=== PATIENT | female | born 1970 | race Caucasian/White ===

== ENCOUNTER → 2024-02-23 | Outpatient (CLI) | payer BC, SELFPAY ==
[2024-02-23 09:36] LABS: Alanine Aminotransferase 22 U/L (10-49); Albumin, Serum 4.2 gm/dL (3.5-5.0); Albumin/Globulin Ratio 1.9 (1.2-2.2); Alkaline Phosphatase 117 U/L (46-116); Anion Gap 4 (7-16); Aspartate Amino Transferase 29 U/L (0-34); BUN/Creatinine Ratio 7 Ratio (12-20); Bilirubin,Total 0.3 mg/dL (0.3-1.2); Blood Urea Nitrogen 6 mg/dL (9-23); Calcium 9.2 mg/dL (8.3-10.6); Calcium (Corrected) 9.2 mg/dL (8.5-10.1); Chloride 100 mMol/L (98-107); Creatinine (Component) 0.9 mg/dL (0.6-1.3); Globulin 2.2 gm/dL (2.3-3.5); Glucose 96 mg/dL (74-106); LDH (Lactate Dehydrogenase) 204 U/L (120-246); Osmolality,Calculated 269 (275-295); Sodium 136 mMol/L (136-145); Total Protein 6.4 gm/dL (5.7-8.2); eGFR > 60 See Note
== END | disposition home or self-care (01) ==
LOC: COPL 08:21
PROVIDERS: PCP Specialist; Referring Provider Specialist; Visit Provider Specialist
DX: A41.9 Sepsis, unspecified organism (principal)
CPT/HCPCS: 36415; 80053; 83615

== ENCOUNTER → 2024-03-24 | Outpatient (CLI) | payer BC, SELFPAY ==
[2024-03-24 11:05] LABS: Collection Type, Urine Clean Catch
[2024-03-24 12:31] LABS: Bacteria,Urine Rare; Bilirubin,Urine Negative (Negative); Blood,Urine Negative (Negative); Clarity,Urine Clear (Clear/Hazy); Color,Urine Yellow (Lt Yel-Yel); Glucose, Urine Negative (Negative); Ketones,Urine 1+ (Negative); Leukocyte Esterase,Urine Negative (Negative); Nitrite,Urine Negative (Negative); PH,Urine 5.5 (5.0-7.0); Protein,Urine Trace (Neg - Trace); RBC,Urine 1 /hpf (0-3); Specific Gravity,Urine 1.018 (1.001-1.035); Squamous Epithelial Cell,Urine 3 /hpf (0-5); Urobilinogen,Urine Negative mg/dL (0.0-1.0); WBC,Urine 2 /hpf (0-5)
== END | disposition home or self-care (01) ==
LOC: SLDO 10:59
PROVIDERS: Referring Provider Specialist; Visit Provider Specialist
DX: R30.0 Dysuria (principal)
CPT/HCPCS: 81001; 87086

== ENCOUNTER → 2024-03-24 | Outpatient (CLI) | payer BC, SELFPAY ==
--- NOTE | 2024-03-24 15:42 | XR_ITS ---
Examination: Retroperitoneal ultrasound, complete Technique: Multiple high resolution grayscale images of the retroperitoneum obtained, including kidneys and bladder. Exam date and time:March 24, 2024 1558 hours INDICATIONS: Diagnosis pyelonephritis over the last 2 months, urinary tract infections since January with sepsis complication FINDINGS: Right kidney 10.1 x 4.7 x 5.8 cm cortex 1.7 cm Left kidney 10.3 x 5.2 x 4.8 cm cortex 1.7 cm No hydronephrosis or renal calculi No solid renal mass lesion No bladder mass or bladder calculi Bladder prevoid volume 228 cc postvoid volume 54 cc IMPRESSION: No hydronephrosis or renal calculi No solid renal mass lesion If the patient exhibits findings of acute pyelonephritis, recommend CT scan abdomen kidneys post intravenous contrast follow-up
== END | disposition home or self-care (01) ==
PROVIDERS: PCP Specialist; Referring Provider Specialist; Visit Provider Specialist
DX: N11.1 Chronic obstructive pyelonephritis (principal)
CPT/HCPCS: 76770

== ENCOUNTER → 2024-03-25 | Outpatient (CLI) | payer BC, SELFPAY ==
[2024-03-25 12:36] LABS: Collection Type, Urine Clean Catch
[2024-03-25 13:17] LABS: Bilirubin,Urine Negative (Negative); Blood,Urine Negative (Negative); Clarity,Urine Clear (Clear/Hazy); Color,Urine Lt-Yellow (Lt Yel-Yel); Glucose, Urine Negative (Negative); Ketones,Urine Negative (Negative); Leukocyte Esterase,Urine Negative (Negative); Nitrite,Urine Negative (Negative); PH,Urine 6.5 (5.0-7.0); Protein,Urine Negative (Neg - Trace); RBC,Urine 3 /hpf (0-3); Specific Gravity,Urine 1.007 (1.001-1.035); Squamous Epithelial Cell,Urine 1 /hpf (0-5); Urobilinogen,Urine Negative mg/dL (0.0-1.0); WBC,Urine 1 /hpf (0-5)
== END | disposition home or self-care (01) ==
LOC: SLDO 11:57
PROVIDERS: PCP Specialist; Referring Provider Specialist; Visit Provider Specialist
DX: R30.0 Dysuria (principal)
CPT/HCPCS: 81001; 87086

== ENCOUNTER → 2024-03-25 | Outpatient (CLI) | payer BC, SELFPAY ==
--- NOTE | 2024-03-25 15:03 | XR_ITS ---
Examination: Abdomen sonogram, complete Date and time of exam: March 25, 2024 1411 hours INDICATIONS: Right upper abdominal pain beginning 2 weeks ago. Technique: Multiple real-time grayscale transabdominal sonographic images of the abdomen have been obtained. Findings: Normal gallbladder Common bile duct enlarged 0.8 cm no stones Pancreatic head 1.8 cm Aorta not enlarged Liver 17.5 cm fatty infiltration no focal liver lesions Normal hepatopedal portal venous flow Patent IVC Right kidney 10.8 x 4.8 x 5.6 cm renal cortex 1.8 cm Left kidney 9.7 x 5.2 x 4.7 cm renal cortex 1.6 cm No hydronephrosis Spleen 8.8 cm IMPRESSION: Normal gallbladder Enlarged common bile duct, clinical correlation advised, if biliary colic is a clinical consideration suggest MRCP follow-up
--- NOTE | 2024-03-25 15:03 | XR_ITS ---
Examination: Pelvic ultrasound, transabdominal, complete Technique: Transabdominal ultrasound of the pelvis performed using grayscale imaging Date and time of exam: March 25, 2024 1521 hours INDICATIONS: Pelvic pain beginning 2 weeks ago. FINDINGS: Absent uterus Ovaries obscured by bowel gas No free fluid in the pelvis IMPRESSION: Limited study No free fluid in the pelvis No pelvic mass
[2024-03-25 15:54] LABS: Lactate (Lactic Acid) 1.4 mMol/L (0.4-2.0)
[2024-03-25 16:08] LABS: Basophils % (Auto) 0 % (0-2.5); Eosinophils % (Auto) 0 % (0-10); Hemoglobin 14.9 g/dL (12.0-16.0); Immature Granulocytes % (Auto) 0 % (0-0); Immature Granulocytes Auto 0.01 Thou/mm3 (0.00-0.00); Lymphocytes % (Auto) 31 % (10-50); Mean Corpuscular HGB Conc 33.9 g/dl (31.0-37.0); Mean Corpuscular Hemoglobin 30.3 pg (25.0-35.0); Mean Corpuscular Volume 89 fL (80-100); Monocytes # (Auto) 0.7 Thou/mm3 (0.0-0.8); Monocytes % (Auto) 8 % (0-12); Neutrophils # (Auto) 5.9 Thou/mm3 (1.8-7.7); Neutrophils % (Auto) 61 % (37-80); Nucleated Red Blood Cell % 0 /100 WBC (0); Platelet Count 288 Thou/mm3 (140-440); Red Blood Count 4.92 Miln/mm3 (4.00-5.20); White Blood Count 9.8 Thou/mm3 (3.6-11.0)
[2024-03-25 16:32] LABS: B-Type Natriuretic Peptide 295 pg/mL (0-100)
[2024-03-25 16:45] LABS: Alanine Aminotransferase 52 U/L (10-49); Albumin, Serum 4.5 gm/dL (3.5-5.0); Alkaline Phosphatase 76 U/L (46-116); Anion Gap 8 (7-16); Aspartate Amino Transferase 60 U/L (0-34); BUN/Creatinine Ratio 15 Ratio (12-20); Bilirubin,Total 0.6 mg/dL (0.3-1.2); Blood Urea Nitrogen 12 mg/dL (9-23); C-Reactive Protein < 0.4 mg/dL (0.0-0.9); Calcium 9.5 mg/dL (8.3-10.6); Calcium (Corrected) 9.5 mg/dL (8.5-10.1); Carbon Dioxide 30.1 mMol/L (20.0-31.0); Chloride 96 mMol/L (98-107); Creatinine (Component) 0.8 mg/dL (0.6-1.3); Globulin 2.3 gm/dL (2.3-3.5); Glucose 89 mg/dL (74-106); LDH (Lactate Dehydrogenase) 296 U/L (120-246); Osmolality,Calculated 266 (275-295); Potassium 3.5 mMol/L (3.4-5.1); Sodium 134 mMol/L (136-145); Total Protein 6.8 gm/dL (5.7-8.2); Troponin I < 0.020 ng/mL (0.0-0.045); eGFR > 60 See Note
[2024-03-25 17:53] LABS: Sed Rate (ESR) 15 mm/hr (0-30)
== END | disposition home or self-care (01) ==
LOC: CDIM 14:52 → COPL 15:16
PROVIDERS: PCP Specialist; Referring Provider Specialist; Visit Provider Radiology Diagnostic Radiology
DX: K83.8 Other specified diseases of biliary tract (principal); R10.2 Pelvic and perineal pain; R07.9 Chest pain, unspecified
CPT/HCPCS: 36415; 76700; 76856; 80053; 83605; 83615; 83880; 84484; 85025; 85652; 86140

== ENCOUNTER → 2024-04-08 | Outpatient (CLI) | payer BC, SELFPAY ==
--- NOTE | 2024-04-08 09:45 | XR_ITS ---
MRI abdomen, without contrast. MRCP Date and time of exam: April 08, 2024 1011 hours Comparison November 24, 2017 INDICATIONS: 2 episodes of intense right-sided abdominal pain and vomiting January and early March, ultrasound abdomen March 25, 2024 enlarged common bile duct 0.8 cm Technique: Multiple axial and coronal images of the abdomen have been obtained with the Siemens 1.5T MRI scanner. Images obtained included T1 weighted transverse images, T2-weighted transverse images, T2-weighted transverse images fat-suppressed, T2 weighted haste fat suppressed transverse images, T1 weighted images, in and out of phase images, T2-weighted coronal images, breath hold, T2 weighted haze coronal images as well as T2 weighted coronal thick slab images, MRCP. Findings: Hepatomegaly 20 cm No intrahepatic biliary tract dilatation No gallstones Gallbladder wall is not thickened Common bile duct 4 mm no common bile duct stones No pancreatic mass or peripancreatic edema Pancreatic duct is not dilated Spleen is normal in size No hydronephrosis Aorta normal size No ascites Prominent lumbar dextroscoliosis IMPRESSION: Hepatomegaly 20 cm Normal gallbladder Normal common hepatic common bile duct, no extrahepatic biliary stones
== END | disposition home or self-care (01) ==
LOC: SMRI 09:13
PROVIDERS: PCP Specialist; Referring Provider Specialist; Visit Provider Specialist
DX: R16.0 Hepatomegaly, not elsewhere classified (principal)
CPT/HCPCS: S8037; 74181

== ENCOUNTER → 2024-04-28 | Outpatient (CLI) | payer BC, SELFPAY ==
[2024-04-28 10:43] LABS: Basophils # (Auto) 0.1 Thou/mm3 (0.0-0.2); Basophils % (Auto) 1 % (0-2.5); Eosinophils # (Auto) 0.3 Thou/mm3 (0.0-0.5); Eosinophils % (Auto) 4 % (0-10); Hematocrit 39.8 % (36.0-46.0); Hemoglobin 12.7 g/dL (12.0-16.0); Immature Granulocytes % (Auto) 0 % (0-0); Immature Granulocytes Auto 0.03 Thou/mm3 (0.00-0.00); Lymphocytes # (Auto) 2.9 Thou/mm3 (1.0-4.8); Lymphocytes % (Auto) 40 % (10-50); Mean Corpuscular HGB Conc 31.9 g/dl (31.0-37.0); Mean Corpuscular Hemoglobin 29.7 pg (25.0-35.0); Mean Corpuscular Volume 93 fL (80-100); Monocytes # (Auto) 0.6 Thou/mm3 (0.0-0.8); Monocytes % (Auto) 8 % (0-12); Neutrophils # (Auto) 3.4 Thou/mm3 (1.8-7.7); Neutrophils % (Auto) 47 % (37-80); Nucleated Red Blood Cell % 0 /100 WBC (0); Platelet Count 296 Thou/mm3 (140-440); RDW Standard Deviation 47.7 fL (36.4-46.3); Red Blood Count 4.27 Miln/mm3 (4.00-5.20); White Blood Count 7.3 Thou/mm3 (3.6-11.0)
[2024-04-28 10:56] LABS: INR 0.9 (0.9-1.3); Partial Thromboplastin Time 28.3 Seconds (22.0-36.0); Prothrombin Time 10.4 Seconds (9.0-12.2)
[2024-04-28 11:15] LABS: Alanine Aminotransferase 20 U/L (10-49); Albumin, Serum 4.3 gm/dL (3.5-5.0); Albumin/Globulin Ratio 1.7 (1.2-2.2); Alkaline Phosphatase 104 U/L (46-116); Anion Gap 5 (7-16); Aspartate Amino Transferase 28 U/L (0-34); BUN/Creatinine Ratio 10 Ratio (12-20); Bilirubin,Total 0.2 mg/dL (0.3-1.2); Blood Urea Nitrogen 8 mg/dL (9-23); Calcium 9.7 mg/dL (8.3-10.6); Calcium (Corrected) 9.7 mg/dL (8.5-10.1); Carbon Dioxide 32.4 mMol/L (20.0-31.0); Chloride 104 mMol/L (98-107); Creatinine (Component) 0.8 mg/dL (0.6-1.3); Globulin 2.6 gm/dL (2.3-3.5); Glucose 94 mg/dL (74-106); Osmolality,Calculated 279 (275-295); Potassium 4.1 mMol/L (3.4-5.1); Sodium 141 mMol/L (136-145); Total Protein 6.9 gm/dL (5.7-8.2); eGFR > 60 See Note
== END | disposition home or self-care (01) ==
LOC: COPL 08:59
PROVIDERS: PCP Specialist; Referring Provider Physician Assistant Medical; Visit Provider Physician Assistant Medical
DX: R10.9 Unspecified abdominal pain (principal)
CPT/HCPCS: 36415; 80053; 85025; 85610; 85730

== ENCOUNTER → 2024-05-31 | Outpatient (CLI) | payer BC, SELFPAY ==
[2024-05-31 09:39] LABS: Basophils # (Auto) 0.1 Thou/mm3 (0.0-0.2); Basophils % (Auto) 1 % (0-2.5); Eosinophils # (Auto) 0.2 Thou/mm3 (0.0-0.5); Eosinophils % (Auto) 3 % (0-10); Hematocrit 40.5 % (36.0-46.0); Hemoglobin 13.2 g/dL (12.0-16.0); Immature Granulocytes % (Auto) 0 % (0-0); Immature Granulocytes Auto 0.02 Thou/mm3 (0.00-0.00); Lymphocytes # (Auto) 2.1 Thou/mm3 (1.0-4.8); Lymphocytes % (Auto) 30 % (10-50); Mean Corpuscular HGB Conc 32.6 g/dl (31.0-37.0); Mean Corpuscular Volume 92 fL (80-100); Monocytes # (Auto) 0.4 Thou/mm3 (0.0-0.8); Monocytes % (Auto) 6 % (0-12); Neutrophils # (Auto) 4.2 Thou/mm3 (1.8-7.7); Neutrophils % (Auto) 59 % (37-80); Nucleated Red Blood Cell % 0 /100 WBC (0); Platelet Count 283 Thou/mm3 (140-440); RDW Standard Deviation 46.8 fL (36.4-46.3); White Blood Count 7.1 Thou/mm3 (3.6-11.0)
[2024-05-31 09:56] LABS: Alanine Aminotransferase 73 U/L (10-49); Albumin, Serum 4.5 gm/dL (3.5-5.0); Albumin/Globulin Ratio 1.9 (1.2-2.2); Alkaline Phosphatase 111 U/L (46-116); Anion Gap 6 (7-16); Aspartate Amino Transferase 73 U/L (0-34); BUN/Creatinine Ratio 13 Ratio (12-20); Bilirubin,Total 0.3 mg/dL (0.3-1.2); Blood Urea Nitrogen 10 mg/dL (9-23); Calcium 9.9 mg/dL (8.3-10.6); Calcium (Corrected) 9.9 mg/dL (8.5-10.1); Carbon Dioxide 30.5 mMol/L (20.0-31.0); Chloride 104 mMol/L (98-107); Creatinine (Component) 0.8 mg/dL (0.6-1.3); Globulin 2.4 gm/dL (2.3-3.5); Glucose 114 mg/dL (74-106); Osmolality,Calculated 279 (275-295); Potassium 4.3 mMol/L (3.4-5.1); Sodium 140 mMol/L (136-145); Total Protein 6.9 gm/dL (5.7-8.2); eGFR > 60 See Note
== END | disposition home or self-care (01) ==
LOC: COPL 08:52
PROVIDERS: PCP Specialist; Referring Provider Specialist; Visit Provider Specialist
DX: N28.85 Pyeloureteritis cystica (principal); I20.9 Angina pectoris, unspecified
CPT/HCPCS: 36415; 80053; 85025

== ENCOUNTER → 2024-07-13 | Outpatient (CLI) | payer BC, SELFPAY ==
[2024-07-13 14:27] LABS: Collection Type, Urine Clean Catch
[2024-07-13 16:58] LABS: Bacteria,Urine 1+; Bilirubin,Urine Negative (Negative); Blood,Urine 1+ (Negative); Color,Urine Yellow (Lt Yel-Yel); Glucose, Urine Negative (Negative); Ketones,Urine Negative (Negative); Leukocyte Esterase,Urine Positive (Negative); Nitrite,Urine Negative (Negative); PH,Urine 6.5 (5.0-7.0); Protein,Urine Negative (Neg - Trace); RBC,Urine 27 /hpf (0-3); Specific Gravity,Urine 1.012 (1.001-1.035); Squamous Epithelial Cell,Urine 4 /hpf (0-5); Urobilinogen,Urine Negative mg/dL (0.0-1.0); WBC,Urine 1001 /hpf (0-5)
[2024-07-13 17:19] LABS: Clarity,Urine Hazy (Clear/Hazy)
== END | disposition home or self-care (01) ==
LOC: SLDO 13:57
PROVIDERS: PCP Specialist; Referring Provider Specialist; Visit Provider Specialist
DX: R30.9 Painful micturition, unspecified (principal)
CPT/HCPCS: 81001; 87077; 87086; 87186

== ENCOUNTER → 2024-08-04 | Outpatient (CLI) | payer BC, SELFPAY ==
[2024-08-04 17:27] LABS: Amphetamine/Methamp Scrn,U Negative (Negative); Barbiturate Screen,Urine Negative (Negative); Benzodiazepines Screen,Urine Positive (Negative); Benzoylecgonine Screen, Ur Negative (Negative); Fentanyl Screen,Urine Negative (Negative); Opiate Screen,Urine Positive (Negative); THC Screen,Urine Negative (Negative)
== END | disposition home or self-care (01) ==
LOC: SLDO 15:22
PROVIDERS: PCP Specialist; Referring Provider Specialist; Visit Provider Specialist
DX: Z79.891 Long term (current) use of opiate analgesic (principal)
CPT/HCPCS: 80307

== ENCOUNTER → 2024-08-11 | Outpatient (CLI) | payer BC, SELFPAY ==
[2024-08-11 13:20] LABS: Thyroid Stimulating Hormone 0.84 uIU/mL (0.55-4.78)
[2024-08-22 07:13] LABS: DHEA Sulfate* 14 mcg/dL (8-188); Luteinizing Hormone* 13.1 mIU/mL; Testosterone, Total, Dialysis 13 ng/dL (2-45)
[2024-08-22 07:14] LABS: Testosterone, Free,Dialysis 1.7 pg/mL (0.1-6.4)
== END | disposition home or self-care (01) ==
LOC: COPL 11:49
PROVIDERS: PCP Specialist; Referring Provider Specialist; Visit Provider Specialist
DX: N95.1 Menopausal and female climacteric states (principal)
CPT/HCPCS: 36415; 82627; 83002; 84402; 84403; 84443

== ENCOUNTER → 2024-09-05 | Outpatient (CLI) | payer BC, SELFPAY ==
[2024-09-05 11:35] LABS: Follicle Stimulating Hormone 37.95 mIU/mL (See Note)
[2024-09-07 15:36] LABS: Thyroglobulin Antibodies <1 IU/mL (< OR = 1)
[2024-09-08 06:31] LABS: Thyroglobulin 72.7 ng/mL
== END | disposition home or self-care (01) ==
LOC: COPL 10:17
PROVIDERS: PCP Specialist; Referring Provider Specialist; Visit Provider Specialist
DX: N95.1 Menopausal and female climacteric states (principal); E04.1 Nontoxic single thyroid nodule
CPT/HCPCS: 36415; 83001; 84432; 86800

== ENCOUNTER → 2024-09-07 | Outpatient (CLI) | payer BC, SELFPAY ==
--- NOTE | 2024-09-07 11:43 | XR_ITS ---
Examination: Thyroid sonography complete TECHNIQUE: Grayscale sonographic images thyroid lobes Date and time: September 07, 2024 1147 hours INDICATIONS: CT examination chest February 03, 2024 6 mm left thyroid nodule FINDINGS: Right thyroid 4.9 cm Upper pole cystic nodule with internal echoes 8 x 7 mm Midpole cystic nodule with internal echoes 11 x 7 mm Left thyroid 4.5 cm Upper pole cyst 5 x 4 mm Lower pole cystic nodule with internal echoes 9 x 7 mm IMPRESSION: Bilateral cystic nodules as above
== END | disposition home or self-care (01) ==
PROVIDERS: PCP Specialist; Referring Provider Specialist; Visit Provider Specialist
DX: E04.2 Nontoxic multinodular goiter (principal)
CPT/HCPCS: 76536

== ENCOUNTER → 2024-11-15 | Outpatient (CLI) | payer BC, SELFPAY ==
[2024-11-15 10:06] LABS: Basophils # (Auto) 0.0 Thou/mm3 (0.0-0.2); Basophils % (Auto) 1 % (0-2.5); Eosinophils # (Auto) 0.1 Thou/mm3 (0.0-0.5); Eosinophils % (Auto) 2 % (0-10); Hematocrit 40.2 % (36.0-46.0); Hemoglobin 13.1 g/dL (12.0-16.0); Immature Granulocytes Auto 0.02 Thou/mm3 (0.00-0.00); Lymphocytes # (Auto) 2.0 Thou/mm3 (1.0-4.8); Lymphocytes % (Auto) 27 % (10-50); Mean Corpuscular HGB Conc 32.6 g/dl (31.0-37.0); Mean Corpuscular Hemoglobin 28.9 pg (25.0-35.0); Mean Corpuscular Volume 89 fL (80-100); Monocytes # (Auto) 0.6 Thou/mm3 (0.0-0.8); Monocytes % (Auto) 9 % (0-12); Neutrophils # (Auto) 4.7 Thou/mm3 (1.8-7.7); Neutrophils % (Auto) 62 % (37-80); Nucleated Red Blood Cell # 0.00 Thou/mm3 (0.00-0.00); Nucleated Red Blood Cell % 0 /100 WBC (0); Platelet Count 318 Thou/mm3 (140-440); RDW Standard Deviation 49.4 fL (36.4-46.3); Red Blood Count 4.53 Miln/mm3 (4.00-5.20); White Blood Count 7.5 Thou/mm3 (3.6-11.0)
[2024-11-15 10:18] LABS: Glucose Estimated Average 131 mg/dL (80-131); Hemoglobin A1C 6.2 % Hgb (4.8-6.0)
[2024-11-15 10:23] LABS: Alanine Aminotransferase 31 U/L (10-49); Albumin, Serum 4.9 gm/dL (3.5-5.0); Albumin/Globulin Ratio 1.7 (1.2-2.2); Alkaline Phosphatase 127 U/L (46-116); Anion Gap 8 (7-16); Aspartate Amino Transferase 46 U/L (0-34); BUN/Creatinine Ratio 11 Ratio (12-20); Bilirubin,Total 0.4 mg/dL (0.3-1.2); Blood Urea Nitrogen 10 mg/dL (9-23); Calcium 10.9 mg/dL (8.3-10.6); Calcium (Corrected) 10.9 mg/dL (8.5-10.1); Carbon Dioxide 31.2 mMol/L (20.0-31.0); Chloride 100 mMol/L (98-107); Creatinine (Component) 0.9 mg/dL (0.6-1.3); Free T4 (Free Thyroxine) 1.25 ng/dL (0.89-1.76); Globulin 2.9 gm/dL (2.3-3.5); Glucose 107 mg/dL (74-106); Osmolality,Calculated 276 (275-295); Potassium 3.9 mMol/L (3.4-5.1); Sodium 139 mMol/L (136-145); Thyroid Stimulating Hormone 0.53 uIU/mL (0.55-4.78); Total Protein 7.8 gm/dL (5.7-8.2); eGFR > 60 See Note
[2024-11-15 10:25] LABS: Urea Breath Test Negative (Negative)
[2024-11-15 10:32] LABS: Creatinine MALB Rnd Ur 133 mg/dL (30-125); Microalbumin Creat Ratio 4 mg/gCrea (<30); Microalbumin, Random Urine 5 mg/L (0-300)
== END | disposition home or self-care (01) ==
LOC: COPL 08:58
PROVIDERS: PCP Specialist; Referring Provider Specialist; Visit Provider Specialist
DX: K20.90 Esophagitis, unspecified without bleeding (principal); E11.65 Type 2 diabetes mellitus with hyperglycemia; E03.8 Other specified hypothyroidism; E78.2 Mixed hyperlipidemia
CPT/HCPCS: 36415; 80053; 82043; 82570; 83013; 83014; 83036; 84439; 84443; 85025

== ENCOUNTER → 2024-12-01 | Outpatient (CLI) | payer BC, SELFPAY ==
[2024-12-01 17:05] LABS: Amphetamine/Methamp Scrn,U Negative (Negative); Barbiturate Screen,Urine Negative (Negative); Benzodiazepines Screen,Urine Positive (Negative); Benzoylecgonine Screen, Ur Negative (Negative); Fentanyl Screen,Urine Negative (Negative); Opiate Screen,Urine Positive (Negative); THC Screen,Urine Negative (Negative)
== END | disposition home or self-care (01) ==
LOC: SLDO 14:52
PROVIDERS: PCP Specialist; Referring Provider Specialist; Visit Provider Specialist
DX: Z79.891 Long term (current) use of opiate analgesic (principal)
CPT/HCPCS: 80307

== ENCOUNTER → 2024-12-05 | Outpatient (CLI) | payer BC, SELFPAY ==
[2024-12-05 13:25] LABS: Parathyroid Hormone Intact 77.2 pg/ml (18.5-88.0)
[2024-12-05 13:30] LABS: Free T4 (Free Thyroxine) 1.02 ng/dL (0.89-1.76); Thyroid Stimulating Hormone 0.81 uIU/mL (0.55-4.78)
[2024-12-12 06:55] LABS: Vitamin D, 25-OH, D2 <4 ng/mL; Vitamin D, 25-OH, D3 29 ng/mL; Vitamin D, 25-OH, Total 29 ng/mL (30-100)
== END | disposition home or self-care (01) ==
LOC: COPL 12:17
PROVIDERS: PCP Specialist; Referring Provider Specialist; Visit Provider Specialist
DX: E83.52 Hypercalcemia (principal); R94.6 Abnormal results of thyroid function studies
CPT/HCPCS: 36415; 82306; 83970; 84439; 84443

== ENCOUNTER → 2024-12-16 | Outpatient (CLI) | payer BC, SELFPAY ==
--- NOTE | 2024-12-16 08:30 | XR_ITS ---
Examination: Screening digital mammography, bilateral Computer aided detection 3-D breast Tomosynthesis, bilateral Date and time of exam: 12/16/2024, 8:19 AM Comparisons: August 2019 through January 2022 Indications: Screening Technique: Nonmagnified MLO, CC views of the breasts to been obtained, reconstructed from 3-D Tomosynthesis images. R2 computer aided detection program utilized for evaluation of suspicious masses and/or abnormal calcifications. 3-D Tomosynthesis images obtained. Technologist: Findings: There are scattered areas of fibroglandular density. No evidence of abnormal masses or suspicious calcifications. Impression: BI-RADS category 2: Benign findings Recommend 1 year follow-up mammogram
== END | disposition home or self-care (01) ==
LOC: CDIM 08:11
PROVIDERS: Referring Provider Specialist; Visit Provider Specialist
DX: Z12.31 Encounter for screening mammogram for malignant neoplasm of breast (principal); R92.323 Mammographic fibroglandular density, bilateral breasts
CPT/HCPCS: 77063; 77067

== ENCOUNTER → 2025-03-09 | Outpatient (CLI) | payer BC, SELFPAY ==
[2025-03-09 16:36] LABS: Amphetamine/Methamp Scrn,U Negative (Negative); Barbiturate Screen,Urine Negative (Negative); Benzodiazepines Screen,Urine Positive (Negative); Benzoylecgonine Screen, Ur Negative (Negative); Fentanyl Screen,Urine Negative (Negative); Opiate Screen,Urine Positive (Negative); THC Screen,Urine Negative (Negative)
== END | disposition home or self-care (01) ==
LOC: SLDO 13:58
PROVIDERS: PCP Specialist; Referring Provider Specialist; Visit Provider Specialist
DX: Z79.891 Long term (current) use of opiate analgesic (principal)
CPT/HCPCS: 80307